=== PATIENT | female | born 1990 | race Hispanic/Latino ===

== ENCOUNTER 2025-08-01 09:31 | Emergency (ER) | payer OTHER, SELFPAY ==
[2025-08-01 09:46] VITALS: BP 126/90
[2025-08-01 10:19] LABS: ALT (SGPT) 16 U/L (0-35); AST (SGOT) 23 U/L (14-36); Albumin 4.5 g/dl (3.5-5.0); Alkaline Phosphatase 41 U/L (38-126); Blood Urea Nitrogen 9 mg/dl (7-17); Calcium 9.1 mg/dl (8.4-10.2); Carbon Dioxide 22 mmol/L (22-30); Chloride 106 mmol/L (98-107); Glucose 91 mg/dl (70-99); Potassium 4.4 mmol/L (3.5-5.1); Sodium 135 mmol/L (135-145); Total Protein 7.2 g/dl (6.3-8.2); eGFR > 60.00
[2025-08-01 10:23] LABS: HCG, Serum Qualitative Screen Negative
[2025-08-01 10:23] LABS: Urine Character Slightly Cloudy (Clear)
[2025-08-01 10:30] LABS: Urine Red Blood Cell 30-40 /HPF (0-2)
[2025-08-01 10:42] LABS: Hematocrit 38.3 % (37.0-47.0); Hemoglobin 13.8 g/dL (12.0-16.0); Mean Corp Hgb Conc. 36.0 g/dL (33.0-37.0); Mean Corpuscular Volume 75.5 fL (81.0-99.0); Platelet Count 152 10^3/uL (130-400); Red Cell Dist. Width 14.2 % (11.5-14.5)
[2025-08-01 10:56] VITALS: BMI 22.9
--- NOTE | 2025-08-01 11:09 | ED.GENMED ---
History of Present Illness
General
Chief Complaint: Flank Pain
Time Seen by Provider: 08/01/25 11:00
History of Present Illness
History of Present Illness:
see MDM
Phy Exam
Physical Exam
Physical Exam:
see MDM
Course
Orders/Labs/Results
Orders:
Orders
08/01/25 09:48
Test Result ONCE
08/01/25 09:53
Complete Blood Count/With Diff Urgent
Comprehensive Metabolic Panel Urgent
HCG, Serum Qualitative Screen Urgent
Comment: Notify provider if positive test present
Manual Differential Urgent
08/01/25 09:56
Urinalysis Reflex To Culture Urgent
Date Specimen was Collected: 08/01/25
Time Specimen was Collected: 09:48
Urine Microscopic Reflex Cult Urgent
08/01/25 11:07
CT Abd/pel Without Iv Or Oral Urgent
Comment:
Reason For Exam: L flank pain, h/o kidney stone
0.9% Sodium Chloride 1000 ml [Nss] 1,000 ml IV BOLUS
Ketorolac [Toradol] 15 mg IV NOW STA
08/01/25 14:12
Tamsulosin [Flomax] 0.4 mg PO NOW STA
Abnormal Lab Results
08/01/25 08/01/25
09:53 09:56
MCV 75.5 L fL
(81.0-99.0)
MPV 12.0 H fL
(7.4-10.4)
Ur Occult Blood Reflex 4+ A
(Negative)
Urine RBC 30-40 A /HPF
(0-2)
Urine Bacteria (Reflex) Few A
(Negative)
Urine Albumin (Reflex) 2+ A
(Neg - Trace)
08/01/25 09:53
08/01/25 09:53
Vital Signs
Initial and Last Documented VS:
Initial Vital Signs
Temp Pulse Resp BP Pulse Ox
37.2 C 85 18 126/90 98
08/01/25 09:46 08/01/25 09:46 08/01/25 09:46 08/01/25 09:46 08/01/25 09:46
Last Documented Vital Signs
Temp Pulse Resp BP Pulse Ox
37.0 C 69 18 132/75 100
08/01/25 14:19 08/01/25 14:19 08/01/25 14:19 08/01/25 14:19 08/01/25 14:19
MDM/Problems Addressed
Differential Diagnosis Includes:
see MDM
MDM/Problems Addressed:
Note:
CHIEF COMPLAINT(S)
Severe right flank pain with hematuria.
HISTORY OF PRESENT ILLNESS
The patient is a 35-year-old female who presents with severe right flank pain that started 2 days ago, mild initially, worse last night. She describes the pain as intermittent and similar to previous episodes she experienced with a kidney stone,
though this has only occurred once in the past. The pain intensified last night, reaching a maximum severity of 9 out of 10. It is associated with hematuria, which she first noticed in the morning on the same day of the visit. She denies any urinary
burning, frequency, vomiting, or history of ovarian cysts. She is currently on control. Although she reports slight nausea when the pain intensifies, she has not experienced any urinary tract infections since her previous kidney stone episode.
The last episode required lithotripsy in [place]. She denies any current symptoms of infection.
PAST MEDICAL AND SURIGICAL HISTORY
The patient has a past medical history of a kidney stone which required lithotripsy for treatment.
PHYSICAL EXAM
GENERAL: Alert, comfortable
Neck: supple
CARDIAC: Regular rate and rhythm .
LUNGS: Clear breath sounds bilaterally, no acute respiratory distress, no wheezes/rales/rhonchi
ABDOMEN: Soft, normal bowel sounds, nondistended, mild RLQ tenderness, no guarding, no rebound, neg scott's
: normal inspection of region
nontender testicles b/l
no rashes
NEUROLOGICAL: Alert and oriented, no focal neuro deficits
SKIN: Warm and dry, skin intact.
PSYCH: Normal and appropriate interaction.
Nursing notes reviewed and vital signs reviewed.
PLAN
1. Perform a CT scan to evaluate for kidney stones.
2. Start an intravenous line to administer fluids.
3. Administer ketorolac intravenously for pain management.
4. Monitor urine output and symptoms while in the facility.
5. Obtain laboratory tests to further evaluate kidney function and blood cell counts, which have already shown no significant abnormalities.
DIFFERENTIAL DIAGNOSIS
The Differential Diagnosis includes, in no particular order and is not limited to:
1. Nephrolithiasis (Kidney stone)
2. Urinary tract infection
3. Pyelonephritis
4. Ovarian cyst rupture
5. Musculoskeletal pain
6. Gastroenteritis
7. Appendicitis
8. Ectopic
9. Renal colic
10. Biliary colic
CARE-UPDATE
08/01/25 - 14:21
The patient has a 3 mm kidney stone, which is expected to be passable. Recommended management includes increased fluid intake and prescription of Flomax (tamsulosin) to facilitate stone passage. The patient is advised to strain urine to monitor
stone passage and to watch for complications such as fever, chills, or vomiting, which may indicate infection. Pain management includes ibuprofen 600 mg, taken three times daily as needed, and Vicodin (hydrocodone/acetaminophen) for severe pain,
with caution advised against taking additional acetaminophen. The patient should follow up with a urologist if the stone does not pass or if severe symptoms develop, potentially requiring stent placement.
*Pulse Oximetry
SaO2: 98
Oxygen Mode of Delivery: Room air
Patient hypoxic: no (98)
*Critical Care Note
Total Time (30-74mins, 75-104mins- exclusive of procedures): Not Applicable
ED Attending Note
-
Portions of this chart may have been created with voice recognition software.� Occasional wrong word or��sound alike� substitutions may have occurred due to the inherent limitations of voice recognition software.
Discharge Plan
Departure
Patient Disposition: Home (Routine Discharge)
Patient with high blood pressure during this ER visit?: No
Condition: Fair
Covid-19: Not Applicable
Discharge Problem:
Kidney stone
Instructions: Kidney Stones (DC), How to Strain Your Urine
Prescriptions:
New
tamsulosin 0.4 mg capsule
0.4 mg PO DAILY Qty: 10 0RF
hydrocodone-acetaminophen 5-325 mg tablet
1 tab PO Q8H PRN (Reason: Pain) Qty: 9 0RF
Referrals:
Pramod Millan MD [Active, Urology] - Follow up in 5-7 days
Rosa Sanchez PA-C [Family Provider, General] - Follow up in 2-3 days
Activity Restrictions/Additional Instructions:
you have a small kidney stone in the left ureter.
Take Flomax once a day and pee through a strainer until you pass the stone. You can take ibuprofen 600 mg 3 times a day with food for pain. If the pain is severe you can try hydrocodone/Tylenol every 6 hours. This has 1 Tylenol in it. Do not
take additional Tylenol while on this medication. You can take Tylenol in place of it.
Watch for signs of infection like fever, vomiting, chills, lethargy etc. and return as needed. Otherwise follow-up with urologist, call for an appointment
Interventions
Interventions:
*Risk Screen - Suicide Last Done: 08/01/25 09:46
*General Assessment Last Done: 08/01/25 10:58
*Neglect/Abuse Screening Last Done: 08/01/25 10:58
*ED COVID-19 Vaccine History Last Done: 08/01/25 10:58
*ED Influenza Vaccine History Last Done: 08/01/25 09:46
[facility] Fall Risk Assessment Tool Last Done: 08/01/25 10:58
*Nursing Disposition Last Done: 08/01/25 14:34
GW-Mwygoh-Lrdyqjcpqo Assessment Last Done: 08/01/25 10:58
ED-Female Genitourinary Assessment Last Done: 08/01/25 10:58
Discharge Date and Time
Discharge Date/Time: 08/01/25 14:35
Print Language: ITALIAN
[2025-08-01 11:17] LABS: Absolute Neutrophils -Man Diff 3.6 10^3/uL (1.4-6.5); Platelets Checked Yes
[2025-08-01 11:18] LABS: Hypochromasia 1+; Microcytosis 1+; Normal RBC Morphology No; Total Cells Counted 100
[2025-08-01 11:19] LABS: Target Cells 1+
[2025-08-01 11:25] VITALS: BP 118/85
[2025-08-01] MEDS: TORADOL 15 MG IV (11:26)
[2025-08-01] MEDS: NSS 1000 IV (11:26)
[2025-08-01 14:19] VITALS: BP 132/75
[2025-08-01] MEDS: FLOMAX 0.4 MG PO (14:20)
== END 2025-08-01 14:35 | disposition home or self-care (01) ==
LOC: EMR 09:31
PROVIDERS: EMERGENCY PHYSICIAN Emergency Medicine; FAMILY PHYSICIAN Physician Assistant
DX: N13.2 Hydronephrosis with renal and ureteral calculous obstruction (principal); Z79.3 Long term (current) use of hormonal contraceptives
CPT/HCPCS: 96374; 96361; 99284; 74176; 80053; 81003; 81015; 84703; 85025